=== PATIENT | female | born 1970 | race African-American/Black ===

== ENCOUNTER 2016-03-04 20:01 | Emergency (ER) | payer OTHER ==
[2016-03-04 20:09] VITALS: BP 150/92; PULSE 84; TEMP 97.9; BMI 19.8
--- NOTE | 2016-03-04 21:17 | PDOC ---
History of Present Illness - General Chief Complaint: Vaginal Bleeding Stated Complaint: VAGINAL BLEED Time Seen by Provider: 03/04/16 21:17 History Source: Patient Exam Limitations: No Limitations - History of Present Illness Initial Comments: 03/04/16 22:04 Chief complaint: Vaginal bleeding Patient 45-year-old female, no significant medical issues states that she had an abnormal period that started a week ago which has never happened before. She saw her manufacturing production manager 4 days ago, on Friday, had blood work done and has an ultrasound scheduled in 2 days. Patient discussed with a friend today about the bleeding to called another medical person who said to her if it was bright red to come to the ER and she did because she felt it was bright red. No increase in bleeding. Patient states she changed her pad several times today, no lightheadedness, shortness of breath, chest pain or any other complaints other than the bleeding. No pain. GENERAL/CONSTITUTIONAL: No fever, weakness. dizziness HEAD, EYES, EARS, NOSE AND THROAT: No change in vision. No ear pain or discharge. No sore throat. CARDIOVASCULAR: No chest pain RESPIRATORY: No shortness of breath or cough GASTROINTESTINAL: No pain, nausea, vomiting, diarrhea or constipation GENITOURINARY: No dysuria, + vaginal bleeding MUSCULOSKELETAL: No neck or back pain SKIN: No rash NEUROLOGIC: No headache, vertigo, loss of consciousness, or loss of sensation. GENERAL: The patient is awake, alert, and fully oriented, in no acute distress. HEAD: Normal with no signs of trauma. EYES: Pupils equal, round and reactive to light, sclera anicteric, conjunctiva clear. ENT: pharynx: no erythema, no exudate, uvula midline NECK: supple CHEST: clear, nontender, rr ABD: soft, nontender Pelvic exam: No tenderness, small amount of blood noticed from the cervix EXTREMITIES: Normal range of motion, no edema. NEUROLOGICAL: Normal speech, normal gait. SKIN: Warm, Dry Past History - Past Medical History Allergies/Adverse Reactions: Allergies Allergy/AdvReac Type Severity Reaction Status Date / Time No Known Allergies Allergy Verified 03/04/16 20:09 Home Medications: Ambulatory Orders NK [No Known Home Medication] 03/04/16 Other medical history: denies - Psycho/Social/Smoking Cessation Hx Suicidal Ideation: No Smoking History: Never smoked Hx Alcohol Use: No Drug/Substance Use Hx: No Substance Use Type: Marijuana *Physical Exam - Vital Signs Last Vital Signs Temp Pulse Resp BP Pulse Ox 97.9 F 84 18 150/92 100 03/04/16 20:07 03/04/16 20:07 03/04/16 20:07 03/04/16 20:07 03/04/16 20:07 Medical Decision Making - Medical Decision Making 03/04/16 22:06 Patient with vaginal bleeding for a week, seen by a manufacturing production manager, in the middle of the workup came to the ER tonight because she was concerned about the color red of the blood after discussing it with another medical person. Change in her symptoms, no increase in bleeding and she scheduled to have an ultrasound on Friday and to evaluate her results of blood work and ultrasound with her manufacturing production manager. Exam shows nothing concerning and she is not symptomatic from the bleeding. No indication for further evaluation, labs or ultrasound in the ER today. Patient will get her ultrasound done on Friday, and she will manufacturing production manager to find out her results and further instructions *DC/Admit/Observation/Transfer Diagnosis at time of Disposition: Vaginal bleeding - Discharge Dispostion Disposition: HOME Condition at time of disposition: Stable - Referrals Referrals: Willie Tee [Primary Care Provider] - - Patient Instructions Printed Discharge Instructions: DI for Vaginal Bleeding Additional Instructions: Follow-up on your results from the manufacturing production manager from your visit on Friday, get your ultrasound done on Friday as scheduled. Discuss any further concerns with the manufacturing production manager Return to the ER that your bleeding so heavily that you feel weak, that your been a pass out, shortness of breath or chest pain
[2016-03-04 21:32] LABS: URINE APPEARANCE CLEAR; URINE BILIRUBIN NEGATIVE (NEGATIVE); URINE COLOR LTYELLOW; URINE GLUCOSE (UA) NEGATIVE (NEGATIVE); URINE KETONE NEGATIVE (NEGATIVE); URINE LEUK ESTERASE NEGATIVE (NEGATIVE); URINE NITRITE NEGATIVE (NEGATIVE); URINE PROTEIN NEGATIVE (NEGATIVE); URINE UROBILINOGEN NEGATIVE E.U./dl (0.2-1.0)
[2016-03-04 21:34] LABS: URINE BLOOD 3+ (NEGATIVE)
[2016-03-04 21:35] LABS: URINE BACTERIA RARE /hpf (NONE SEEN); URINE MUCUS FEW; URINE RBC 3 /hpf (0-3); URINE WBC 2 /hpf (3-5)
== END 2016-03-04 22:15 | disposition home or self-care (01) ==
LOC: JER 20:01
DX: N93.8 Other specified abnormal uterine and vaginal bleeding (principal)
CPT/HCPCS: 81003; 81015; 84703; 99282-25

== ENCOUNTER 2016-09-28 10:38 | Emergency (ER) | payer OTHER ==
[2016-09-28 10:51] VITALS: BP 128/82; PULSE 65; TEMP 97.6; BMI 21.1
[2016-09-28 11:24] LABS: BASOPHIL 1.3 % (0-2.0); EOSINOPHIL 2.8 % (0-4.5); MCH 29.5 pg (25.7-33.7); MCHC 33.2 g/dl (32.0-36.0); MEAN CELL VOLUME 88.8 fl (80-96); MEAN PLT VOLUME 8.6 fl (7.5-11.1); NEUTROPHILS 42.2 % (42.8-82.8); PLATELET COUNT 207 K/MM3 (134-434); RDW 13.9 % (11.6-15.6); WHITE BLOOD COUNT 3.9 K/mm3 (4.0-10.0)
--- NOTE | 2016-09-28 11:27 | PDOC ---
History of Present Illness - General Chief Complaint: Palpitations Stated Complaint: IRREGULAR HEART BEAT Time Seen by Provider: 09/28/16 10:59 History Source: Patient Exam Limitations: No Limitations - History of Present Illness Presenting Symptoms: Other Location: reports: other (L chest) Past History - Past Medical History Allergies/Adverse Reactions: Allergies Allergy/AdvReac Type Severity Reaction Status Date / Time No Known Allergies Allergy Verified 09/28/16 10:46 Home Medications: Ambulatory Orders Ranitidine [Zantac -] 150 mg PO DAILY 09/28/16 - Psycho/Social/Smoking Cessation Hx Anxiety: No Suicidal Ideation: No Smoking History: Never smoked Have you smoked in the past 12 months: No Information on smoking cessation initiated: No Hx Alcohol Use: No Drug/Substance Use Hx: No Substance Use Type: Marijuana Review of Systems - Review of Systems Constitutional: No: Chills, Fever Respiratory: No: Cough, Shortness of Breath Cardiac (ROS): No: Chest Pain, Edema, Lightheadedness, Syncope, Chest Tightness Neurological: No: Dizziness *Physical Exam - Vital Signs Last Vital Signs Temp Pulse Resp BP Pulse Ox 97.6 F 65 18 128/82 100 09/28/16 10:46 09/28/16 10:46 09/28/16 10:46 09/28/16 10:46 09/28/16 10:46 - Physical Exam General Appearance: Yes: Appropriately Dressed. No: Apparent Distress HEENT: positive: Normal Voice Neck: positive: Supple Respiratory/Chest: positive: Lungs Clear, Normal Breath Sounds. negative: Respiratory Distress Cardiovascular: positive: Regular Rate, S1, S2 Gastrointestinal/Abdominal: positive: Soft. negative: Tender Extremity: positive: Normal Inspection Integumentary: positive: Dry, Warm Neurologic: positive: Fully Oriented, Alert, Normal Mood/Affect ED Treatment Course - LABORATORY CBC & Chemistry Diagram: 09/28/16 11:10 09/28/16 12:45 - ADDITIONAL ORDERS Additional order review: Laboratory Results 09/28/16 09/28/16 09/28/16 12:55 12:45 11:36 D-Dimer < 200 Sodium 142 Potassium 4.2 Chloride 106 Carbon Dioxide 31 Anion Gap 5 L BUN 15 Creatinine 0.7 Creat Clearance w eGFR > 60 Random Glucose 88 Calcium 8.8 Total Bilirubin 0.8 AST 12 L ALT 18 Alkaline Phosphatase 78 Creatine Kinase Troponin I Total Protein 7.1 Albumin 3.9 Urine Color Ltyellow Urine Appearance Clear Urine pH 7.0 Urine Protein Negative Urine Glucose (UA) Negative Urine Ketones Negative Urine Blood Negative Urine Nitrite Negative Urine Bilirubin Negative Urine Urobilinogen Negative Ur Leukocyte Esterase Negative 09/28/16 09/28/16 11:10 11:10 D-Dimer Cancelled Sodium Cancelled Potassium Cancelled Chloride Cancelled Carbon Dioxide Cancelled Anion Gap Cancelled BUN Cancelled Creatinine Cancelled Creat Clearance w eGFR Cancelled Random Glucose Cancelled Calcium Cancelled Total Bilirubin Cancelled AST Cancelled ALT Cancelled Alkaline Phosphatase Cancelled Creatine Kinase Cancelled Troponin I Cancelled Total Protein Cancelled Albumin Cancelled Urine Color Urine Appearance Urine pH Urine Protein Urine Glucose (UA) Urine Ketones Urine Blood Urine Nitrite Urine Bilirubin Urine Urobilinogen Ur Leukocyte Esterase 09/28/16 11:10 RBC 5.03 MCV 88.8 MCHC 33.2 RDW 13.9 MPV 8.6 Neutrophils % 42.2 L Lymphocytes % 43.5 H Monocytes % 10.2 Eosinophils % 2.8 Basophils % 1.3 - RADIOLOGY Radiology Studies Ordered: Category Date Time Status CHEST X-RAY PORTABLE* [RAD] Stat Radiology 09/28/16 11:14 Completed Medical Decision Making - Medical Decision Making 09/28/16 11:21 46-year-old female, no significant history, status post tubal ligation remotely , here complaining of chest discomfort. Patient states approximately 5 days ago started having a "funny feeling" to left side of chest under her left breast that at times feel like her heart was beating fast and then slowing down. States symptoms are intermittent and only felt when standing or walking around, never at rest. Denies any overt pain, shortness of breath, diaphoresis , nausea, vomiting, dizziness, palpitations, leg pain or swelling. States she though it was gas and have been taking over the counter meds w/ no relief. Was seen by her primary doctor yesterday and started on Zantac but continues to have symptoms. No h/o similar symptoms. No h/o anxiety and no major life stressors See exam ? palpitations vs irregular heart beat No chest pain or SOB PERCs out Possibly anxiety -ekg -cxr -labs -reassess 09/28/16 11:26 09/28/16 14:01 EKG, CVXR and labs all unremarkable. Pt stable throughout ER visit. Will dc to continue f/u with PMD *DC/Admit/Observation/Transfer Diagnosis at time of Disposition: Palpitations - Discharge Dispostion Disposition: HOME Condition at time of disposition: Good - Patient Instructions Additional Instructions: Your ekg, cxr and labs were all normal. Please continue to follow up with your PMD
[2016-09-28 12:35] LABS: URINE APPEARANCE CLEAR; URINE BILIRUBIN NEGATIVE (NEGATIVE); URINE BLOOD NEGATIVE (NEGATIVE); URINE COLOR LTYELLOW; URINE GLUCOSE (UA) NEGATIVE (NEGATIVE); URINE KETONE NEGATIVE (NEGATIVE); URINE LEUK ESTERASE NEGATIVE (NEGATIVE); URINE NITRITE NEGATIVE (NEGATIVE); URINE PROTEIN NEGATIVE (NEGATIVE); URINE UROBILINOGEN NEGATIVE mg/dL (0.2-1.0)
--- NOTE | 2016-09-28 13:12 | EKG ---
Test Reason : Blood Pressure : / mmHG Vent. Rate : 069 BPM Atrial Rate : 069 BPM P-R Int : 188 ms QRS Dur : 086 ms QT Int : 388 ms P-R-T Axes : 000 114 115 degrees QTc Int : 415 ms NOTE ERROR IN LIMB LEAD CONNECTION RECOMMEND REPEAT TRACING NO PREVIOUS ECGS AVAILABLE Confirmed by ENRRIQUE GIBBONS, RADAMES ([id number]) on 09/28/2016 1:11:55 PM Referred By: Confirmed By:RADAMES OSUNA MD
[2016-09-28 13:28] LABS: ALBUMIN 3.9 g/dl (3.4-5.0); ALK PHOS 78 U/L (45-117); ANION GAP 5 (8-16); BILIRUBIN,TOTAL 0.8 mg/dL (0.2-1.0); CALCIUM 8.8 mg/dL (8.5-10.1); CO2 31 mmol/L (21-32); CREATININE 0.7 mg/dL (0.55-1.02); GLUCOSE,RANDOM 88 mg/dL (74-106); SGOT/AST 12 U/L (15-37); SGPT/ALT 18 U/L (12-78); TOT PROT 7.1 g/dl (6.4-8.2)
== END 2016-09-28 14:05 | disposition home or self-care (01) ==
LOC: JER 10:38
DX: R00.2 Palpitations (principal)
CPT/HCPCS: 36415; 71010-TC; 80053; 81003; 85025; 85379; 93005; 93010; 99285-25